=== PATIENT | male | born 1935 | race Caucasian/White ===

== ENCOUNTER 2016-11-21 04:30 | Observation (INO) | payer MEDICARE, MEDICAID ==
[2016-11-21] MEDS ORDERED: ASPIRIN 325 MG TABLET PO ONE (04:48)
--- NOTE | 2016-11-21 04:52 | Emergency Department Record ---
History of Present Illness - General Chief Complaint: Chest Pain Stated Complaint: CHEST PAIN Time Seen by Provider: 11/21/16 04:40 Source: Patient Mode of Arrival: Wheelchair Limitations: No limitations - History of Present Illness Initial Comments: The patient is here due to a 2 hour hx of retrosternal chest pain that woke him up between 2:30 and 3:00 am. The pain was sharp and stabbing and intermittently radiated to his abdomen. He had mild SOB with it but no nausea, sweating, or lightheadedness. The patient has had similar problems in the past and did have a heart catheterization in the past that was neg per family. Presently the pain has resolved and the patient is pain free. MD Complaint: Chest pain Onset/Timin -: Hour(s) Onset: During rest Pain Location: Substernal Pain Radiation: None Severity: Mild Consistency: Constant Improves With: Nothing Worsens With: Nothing Treatments Prior to Arrival: None - Related Data Allergies Allergy/AdvReac Type Severity Reaction Status Date / Time No Known Allergies Allergy Unverified 10/18/16 11:27 Travel Screening - Travel/Exposure Within Last 30 Days Have you traveled within the last 30 days?: No - Travel/Exposure Within Last Year Have you traveled outside the [place] in the last year?: No - Additonal Travel Details Have you been exposed to anyone with a communicable illness?: No - Travel Symptoms Symptom Screening: None Review of Systems Constitutional: Denies: Chills, Fever Eyes: Denies: Eye discharge ENT: Denies: Congestion Respiratory: Denies: Cough, Dyspnea Cardiovascular: Denies: Arrhythmia Endocrine: Denies: Fatigue Gastrointestinal: Denies: Abdominal pain Genitourinary: Denies: Dysuria Musculoskeletal: Denies: Arthralgia Past Medical History - SOCIAL HISTORY Smoking Status: Former smoker Alcohol Use: None Drug Use: None - RESPIRATORY Hx Respiratory Disorders: Yes Hx COPD: Yes Hx Pulmonary Embolism: Yes (05/2013 "multiple instances") Comment:: URI - CARDIOVASCULAR Hx Cardio Disorders: Yes Hx Cardiac Cath: Yes Hx Heart Attack: Yes ([place]) Hx Hypertension: Yes Comment:: a fib, high cholesterol - NEURO Hx Neuro Disorders: Yes Hx Dementia: Yes - GI Hx GI Disorders: No - Hx Genitourinary Disorders: No - ENDOCRINE Hx Endocrine Disorders: No Hx Diabetes: No Hx Thyroid Disease: No - MUSCULOSKELETAL Hx Musculoskeletal Disorders: Yes Hx Arthritis: Yes - PSYCH Hx Psych Problems: No - HEMATOLOGY/ONCOLOGY Hx Hematology/Oncology Disorders: No Family Medical History Any Significant Family History?: No Family Hx Comment (NOT TO BE USED IN PLACE OF ITEMS BELOW): Pt unsure of family history. Hx Cancer: Brother/Sister Physical Exam - General General Appearance: Alert, Cooperative, No acute distress - Head Head exam: Atraumatic, Normocephalic, Normal inspection - Eye Eye exam: Normal appearance, PERRL - ENT Throat exam: Normal inspection. negative: Tonsillar erythema, Tonsillar exudate - Neck Neck exam: Normal inspection, Full ROM. negative: Tenderness - Respiratory Respiratory exam: Normal lung sounds bilaterally. negative: Respiratory distress - Cardiovascular Cardiovascular Exam: Regular rate, Normal rhythm, Normal heart sounds - GI/Abdominal GI/Abdominal exam: Soft, Normal bowel sounds. negative: Tenderness - Extremities Extremities exam: Normal inspection, Full ROM, Normal capillary refill, Other ( radial pulses are 2+ and equal bilaterally.). negative: Tenderness - Neurological Neurological exam: Alert. negative: Motor sensory deficit Course Vital Signs 11/21/16 11/21/16 04:31 04:43 Temperature 97.7 F Pulse Rate 72 Pulse Rate [ 66 Slot Host ] Respiratory 20 20 Rate Blood Pressure 158/75 [Left Arm] Pulse Ox 98 94 L - Reevaluation(s) Reevaluation #1: The patient is doing well at this time. He denies any pain or discomfort. I did review his history and he had a neg heart catheterization in Jan. He is very stable at this time but I did recommend admitting him to the hospital for further observation and he and his family do agree. 11/21/16 05:55 Medical Decision Making - Data Complexity MDM Data: Labs Ordered and/or Reviewed, X-Ray Ordered and/or Reviewed, EKG Ordered and/or Reviewed - Lab Data Result diagrams: 11/21/16 04:30 11/21/16 04:30 - EKG Data -: EKG Interpreted by Me EKG: No Acute Changes, Unchanged From Previous - Radiology Data Radiology results: Report reviewed (CXR: CMG, No acute changes.) Disposition Disposition: Admit Clinical Impression: Chest pain, rule out acute myocardial infarction Disposition: Still a Patient at [facility] Decision to Admit: Admit from ER Decision to Admit Date: 11/21/16 Decision to Admit Time: 05:56 Accepting Physician: Pricilla Time Discussed w/Accepting Physician: 05:56 Condition: (2) Stable Time of Disposition: 05:57 Quality - Quality Measures Quality Measures: N/A - Blood Pressure Screening View Details: Yes Does Patient Have Any of the Following: Active Dx of HTN Blood Pressure Classification: Pre-Hypertensive BP Reading Systolic Measurement: 152 Diastolic Measurement: 86 Screening for High Blood Pressure: Patient Exclusion, Hx of HTN [G9744] Pre-Hypertensive Follow-up Interventions: Referral to alternative/primary care provider.
[2016-11-21 05:07] LABS: BASO % 0.4 % (0-6); EOS % 3.3 % (0-6); GRAN % 54.2 % (47-80); HEMATOCRIT 44.7 % (42.0-52.0); HEMOGLOBIN 15.7 gm/dl (14.0-18.0); LYMPH % 30.4 % (16-45); MEAN CELL VOLUME 98.9 fl (81-97); MEAN CORPUSCULAR HEMOGLOBIN 34.7 pg (27-33); MEAN CORPUSCULAR HGB CONC 35.1 g/dl (32-36); MEAN PLATELET VOLUME 10.4 fl (7.4-10.4); MONO % 11.7 % (0-9); PLATELET COUNT 220 K/uL (130-400); RED BLOOD COUNT 4.52 M/uL (4.40-5.70); RED CELL DISTRIBUTION WIDTH 12.8 % (11.5-14.5); WHITE BLOOD COUNT W/O DIFF 7.6 K/uL (4.2-12.2)
[2016-11-21 05:20] LABS: INR 0.99; PARTIAL THROMBOPLASTIN TIME 25.3 SECONDS (24.5-39.1); PROTHROMBIN TIME (PATIENT) 10.7 SECONDS (9.5-12.1)
[2016-11-21 05:23] LABS: BLOOD UREA NITROGEN 28 mg/dL (8-23); CREATININE 1.1 mg/dL (0.7-1.2); EST GLOMERULAR FILTRATION RATE > 60 mL/min; GLUCOSE,RANDOM 114 mg/dL (74-109)
[2016-11-21 05:30] LABS: CKMB 3.6 ng/mL (<6.73); CREATINE PHOSPHOKINASE 65 U/L (39-308)
[2016-11-21 06:11] LABS: TROPONIN I < 0.30 ng/mL (0.00-0.300)
[2016-11-21] MEDS ORDERED: ALBUTEROL HFA 8 GM INHALER INH PRN (06:29)
[2016-11-21] MEDS ORDERED: TIMOLOL OP SCH (06:29)
--- NOTE | 2016-11-21 09:12 | RADIOLOGY REPORT ---
EXAM: CHEST, TWO VIEWS HISTORY: CHEST PAIN. TECHNIQUE: Frontal and lateral views of the chest were obtained. Comparison: Prior chest from 01/01/16. FINDINGS: The heart size is stable. Osteopenia. Calcified granulomata in the right upper lobe and left lung base. Mild interstitial edema. No pneumothorax. Minimal blunting of the costophrenic angles consistent with tiny effusions and/or pleural thickening. IMPRESSION: MILD INTERSTITIAL EDEMA. TINY EFFUSIONS AND/OR PLEURAL THICKENING. JOB NUMBER: [id number] MTDD
[2016-11-21] MEDS ORDERED: ASPIRIN 325 MG TAB ENTERIC-COATED PO SCH (10:00)
[2016-11-21] MEDS ORDERED: ATORVASTATIN 20 MG TABLET PO SCH (10:00)
[2016-11-21] MEDS ORDERED: PEG OP SCH (10:00)
[2016-11-21] MEDS ORDERED: FUROSEMIDE 20 MG TABLET PO SCH (10:00)
[2016-11-21] MEDS ORDERED: Dorzolamide Hcl/Timolol Maleat [Cosopt Eye Drops] OP SCH (10:00)
[2016-11-21] MEDS ORDERED: METOPROLOL SUCC 50 MG TABLET PO SCH (10:00)
[2016-11-21] MEDS ORDERED: PROPYLENE GLYCOL OP SCH (10:00)
[2016-11-21] MEDS ORDERED: Non-Formulary MISC (Atorvastatin Calcium [Lipitor] 40 MG) PO SCH (10:00)
[2016-11-21 10:50] LABS: CKMB 3.2 ng/mL (<6.73)
[2016-11-21 10:53] LABS: TROPONIN I < 0.30 ng/mL (0.00-0.300)
[2016-11-21] MEDS: IPRATROPIUM/ALBUTEROL 4 GM INH INH SCH ×2 (11:27→14:20)
--- NOTE | 2016-11-21 12:37 | Discharge Note ---
VTE H&P Assessment - Risk for VTE Risk for VTE: Yes Risk Level: Low Risk Assessment Date: 11/21/16 Risk Assessment Time: 12:35 VTE Orders Placed or Will Be Placed: No VTE Reason for No Prophylaxis: Not Indicated (going home) Discharge Medications - Discharge Medications Home Medications: Ambulatory Orders Albuterol Sulfate [Proair Hfa] 2 puff IH Q4H PRN 07/31/13 [Last Taken 02/10/15] Atorvastatin Calcium [Lipitor] 40 mg PO DAILY 07/31/13 [Last Taken 07/31/13] Furosemide [Lasix] 20 mg PO DAILY 07/31/13 [Last Taken 07/08/15] Metoprolol Succinate [Toprol Xl] 50 mg PO DAILY 07/31/13 [Last Taken 07/08/15] Dorzolamide HCl/Timolol Maleat [Cosopt Eye Drops] 1 drop OP BID 02/10/15 [Last Taken Unknown] Aspirin [Aspirin EC] 81 mg PO DAILY 06/10/15 [Last Taken 07/08/15] Travoprost Opth [Travatan Z Opth] 1 drop OPTH QHS 06/10/15 [Last Taken 07/08/15] Budesonide 0.5 mg NEB BID ml 01/01/16 [Last Taken Unknown] Cholecalciferol (Vitamin D3) [Vitamin D3] 2,000 unit PO DAILY cap 01/01/16 [ Last Taken Unknown] Formoterol Fumarate [Perforomist] 20 mcg IH BID ml 01/01/16 [Last Taken Unknown ] Ipratropium/Albuterol Sulfate [Combivent Respimat Inhal Arcade] 1 puff IH QID puff 01/01/16 [Last Taken Unknown] Propylene Glycol/Peg 400/Pf [Systane 0.3-0.4% Eye Drops] 1 each OP DAILY [Last Taken Unknown] Discharge Note - Date Date of Discharge Note: 11/21/16 Disposition: Home, Self-Care Condition: (2) Stable Additional Instructions: follow up with Dr. Medrano in one week heat to the left shoulder tylenol for pain 650 mg three times a day Forms: Patient Portal Access Activity at Discharge: Increase Activity as Tolerated
[2016-11-21] MEDS ORDERED: FUROSEMIDE 20 MG TABLET PO ONE (12:47)
[2016-11-21] MEDS ORDERED: TRAVOPROST OPTH OPTH SCH (22:00)
--- NOTE | 2016-11-22 07:30 | History and Physical Report ---
DATE OF ADMISSION: 11/21/2016 CHIEF COMPLAINT: Chest pain. HISTORY OF CHIEF COMPLAINT: This 81-year-old male presented to the emergency department with chest pain and left shoulder pain. He was a little congested. He described the pain as mild and sharp in nature, worse when he lifts his hand, especially his left arm over his shoulder or he has arthritis in his shoulder. He was brought in to be evaluated in the emergency department. Evaluated by Dr. Henriquez. He says the pain radiates into his abdomen and back. He had no dyspnea, no nausea, no sweating. The pain was gone in the emergency department and did not return. The patient has some dementia and is mentally challenged since . He had a heart catheterization in 2014 which was negative. His primary doctor is Dr. Leon. On my evaluation, he was having no pain, eating breakfast, felt very good. PAST MEDICAL HISTORY: COPD, pulmonary embolism in 2013, [place], atrial fibrillation, hypercholesterolemia, dementia, arthritis. PAST SURGICAL HISTORY: Eye surgery and carpal tunnel release in 1989. FAMILY HISTORY: Brother and sister have cancer. SOCIAL HISTORY: Former smoker, stopped in 1969. No alcohol or drug use. MEDICATIONS: 1. Travatan 1 drop at h.s. both eyes. 2. He is no longer taking timolol. 3. Systane 0.3% to 0.4% each eye daily. 4. Toprol-XL 50 mg daily. 5. Combivent 1 puff q.i.d. 6. Lasix 20 mg daily. 7. Perforomist 20 mcg 1 puff b.i.d. 8. Cosopt ophthalmic drops both eyes daily. 9. D3 2000 units daily. 10. Pulmicort nebulization 0.5 mg b.i.d. 11. Atorvastatin. 12. Lipitor 40 mg daily. 13. Aspirin 81 mg daily. 14. ProAir inhaler 2 puffs q.4 h. p.r.n. ALLERGIES: No known allergies. REVIEW OF SYSTEMS: HEENT: No upper respiratory infection symptoms, cough, cold, or congestion. Cardiovascular: See Chief Complaint. No chest pain at this time. There is pain in the left shoulder in moving his left shoulder above his head. He has pain that radiates into his chest and this is the type of pain he was feeling. Gastrointestinal: No nausea, vomiting, diarrhea, black stools, or bloody stools. Genitourinary: No dysuria, hematuria, frequency, or burning on urination. Musculoskeletal: See Chief Complaint. He also has left shoulder arthritis, severe. Neurological: No CVA, paralysis, or paresthesias. Endocrine: No hypothyroidism or diabetes. Integument: No rash, ulcers, change in moles, or yellow skin. PHYSICAL EXAMINATION: VITALS: Height 5 feet 4 inches, weight 152 pounds. Temperature 98.1, pulse 69, blood pressure 108/69, respiratory rate 18, pulse ox 98% on room air. HEENT: Pupils are equal, round, and reactive to light and accommodation. Extraocular muscles are intact. Throat is clear. Nose is clear. Tympanic membranes are lainez. NECK: Supple. No jugular venous distention. No hepatojugular reflux. No carotid bruits. Thyroid is smooth. CARDIOVASCULAR: Regular rate and rhythm without murmurs, clicks, rubs, or gallops. RESPIRATORY: Clear to auscultation and percussion. ABDOMEN: Soft, nontender. No hepatosplenomegaly, no masses, no tenderness. Bowel sounds are active. No bruits. EXTREMITIES: No pitting edema. No cyanosis, no clubbing. Full range of motion. Peripheral pulses are good. BREASTS: Normal male breasts. RECTAL: Exam deferred. GENITALIA: Deferred. NEUROLOGIC: Cranial nerves II-XII intact. No gross defects. Sensation normal, strength normal. Deep tendon reflexes equal bilaterally with Babinski negative. MENTAL STATUS: Alert and oriented x3. Mentally challenged. Slight dementia. IMPRESSION: 1. Chest pain. 2. Anterior chest wall pain. 3. Arthritis secondary to left shoulder pain. PLAN: Consult. Increase the Lasix slightly because on the chest x-ray the radiologist saw possible interstitial mild edema; however, no rales heard and no dyspnea, so we can give him 40 of Lasix today and go 40 of Lasix for 5 days and then go back to 20 mg a day. Follow up with Dr. Medrano. If necessary, follow up with Dr. Combs, his typo machine operator, in 1-2 weeks. [facility]
--- NOTE | 2016-11-23 12:50 | Discharge Summary ---
DISCHARGE DATE: 11/21/2016 DISCHARGE DIAGNOSES: 1. Chest pain. 2. Anterior chest wall syndrome. 3. Arthritis of the left shoulder. 4. Glaucoma. 5. Hypertension. 6. COPD. 7. Hypercholesterolemia. ATTENDING PHYSICIAN: Wayne Pleitez DO REASON FOR HOSPITALIZATION: This 81-year-old male presented to the emergency department with 2 hours of chest pain and left shoulder pain. It started about 2:30 to 3-o'clock in the morning. The pain was sharp and stabbing intermittently radiating to the abdomen. He said he was mildly short of breath but no nausea, sweating, or lightheadedness. The patient had similar problems in the past and did have a heart catheter in the past which was negative. Presently the pain has resolved and the patient is pain free in the emergency department. He was admitted to the hospital for serial cardiac enzymes. SIGNIFICANT FINDINGS: He remained pain free since the ER and his second set of enzymes were negative. His EKG showing no acute changes. Normal sinus rhythm. Chest x-ray with mild interstitial edema, tiny effusions, and pleural thickening. Heart size is stable. WBC 7600, hemoglobin 15.7. Cardiac enzymes were negative x2. THERAPY PROVIDED: The patient has been pain free and he is currently on a diuresis, Lasix. Going to increase that to 40 mg a day for 3 days and follow up with Dr. Leon because of the chest x-ray findings. HOSPITAL COURSE: Unremarkable. CONDITION ON DISCHARGE: Much improved. DISCHARGE INSTRUCTIONS: Follow up with Dr. Leon in 1 week. Increase the Lasix to 40 mg a day. Continue his other home medications. CC: Dr. Edward NAVARRO
--- NOTE | 2016-11-23 13:50 | Discharge Summary ---
OBSERVATION PATIENT DATE OF ADMISSION: 11/21/2016 DATE OF DISCHARGE: 11/21/2016 at about noontime. PRIMARY CARE PHYSICIAN: Dr. Medrano. ATTENDING PHYSICIAN: Wayne Pleitez, DISCHARGE DIAGNOSES: 1. Chest pain. 2. Anterior chest wall pain. 3. Arthritis of the left shoulder. 4. Glaucoma. 5. Hypertension. 6. Hypercholesterolemia. 7. Slightly abnormal chest x-ray with mild interstitial edema. Will double his Lasix to 40 mg a day for 5 days, and then back to 20 mg a day. He currently is not short of breath. He has no rales on auscultation of the posterior bases. HOME MEDICATIONS: Travoprost Ophthalmic 1 drop at bedtime both eyes, Systane 0.3% to 0.4% each eye daily, metoprolol succinate 50 mg daily, Combivent 2 puffs q.i.d., Lasix increased to 40 mg a day for 5 days then back to 20 mg a day, Perforomist nebulization 20 mcg b.i.d., Cosopt eye drops both eyes daily, vitamin D3 2000 units daily, Lipitor 40 mg at bedtime, aspirin 81 mg daily, ProAir 2 puffs q.i.d. p.r.n. REASON FOR HOSPITALIZATION: Chest pain. HISTORY: This 81-year-old male presented to the Emergency Department with chest pain. He rolled on his painful left shoulder and also retrosternal chest pain. The patient stated it was a stabbing kind of pain, worse when he moves his arm around. He denies any pain at this time. He told Dr. Henriquez he had no pain, but he admitted him for serial cardiac enzymes and serial EKG to make sure that he was not having atypical chest pain. He denies dyspnea, shortness of breath, nausea or vomiting or lightheadedness. The patient had a similar problem in the past. In 2014, he had a heart catheterization, which was negative per the family. SIGNIFICANT FINDINGS: Cardiac enzymes were negative x 2. EKGs showed normal sinus rhythm without any acute changes. Chest x-ray, as I stated, showed mild interstitial edema. WBC 7600. Hemoglobin 15.7. BUN 28. Creatinine 1.1. Potassium 4.3. THERAPY PROVIDED: Cardiac monitoring. He has been pain-free since he came in to the hospital. HOSPITAL COURSE: Unremarkable. CONDITION ON DISCHARGE: Stable and improved. DISCHARGE INSTRUCTIONS: Follow up with Dr. Medrano in 1 week to 10 days. Heat to the chest and shoulder. Increase the Lasix to 40 mg a day for 5 days then drop it back down to 20 mg a day. Follow up with Dr. Combs in 1-2 weeks for further evaluation of atypical chest pain. Continue his home medications. CC: Dr. Mitchell NAVARRO
== END 2016-11-21 16:25 | disposition home or self-care (01) ==
LOC: ER 04:30 → MEDSURG 06:18
PROVIDERS: ADMIT Emergency Medicine; ATTEND Emergency Medicine
DX: R07.89 Other chest pain (principal); J44.9 Chronic obstructive pulmonary disease, unspecified; E78.00 Pure hypercholesterolemia, unspecified; F17.200 Nicotine dependence, unspecified, uncomplicated; Z86.711 Personal history of pulmonary embolism; I25.2 Old myocardial infarction
CPT/HCPCS: 99285 ×2; 94760 ×2; 82550; 85025; 85730; 85610; 82553; 84484; 80048; 71020; 94640 ×2; 93005; 93010; G0378; 99236